=== PATIENT | female | born 1975 | race Caucasian/White ===

== ENCOUNTER 2018-12-10 20:50 | Emergency (ER) | payer SELFPAY ==
[~2018-12-10] VITALS: Ht 165.1 cm; Wt 66.0 kg
[~2018-12-10 20:50] MED LIST: MOTRIN
[2018-12-10] MEDS ORDERED: HYDROCODONE/ACETAMINOPHEN 5/325MG TABLET PO ONE (21:15)
[2018-12-11 03:10] VITALS: BP 122/70
== END 2018-12-11 03:15 | disposition home or self-care (01) ==
LOC: ER 20:50
DX: S70.01XA Contusion of right hip, initial encounter (principal); E11.9 Type 2 diabetes mellitus without complications; F15.10 Other stimulant abuse, uncomplicated; Z85.9 Personal history of malignant neoplasm, unspecified; W01.0XXA Fall on same level from slipping, tripping and stumbling without subsequent striking against object, initial encounter; Y93.89 Activity, other specified; Y92.89 Other specified places as the place of occurrence of the external cause; Y99.8 Other external cause status
CPT/HCPCS: 72192; 73502; 99284

== ENCOUNTER 2018-12-13 20:24 | Emergency (ER) | payer SELFPAY ==
[~2018-12-13] VITALS: Ht 162.6 cm; Wt 70.0 kg
[2018-12-13] MEDS ORDERED: MORPHINE SULFATE 4 MG/ML CPJ (NOT FOR IM USE) IV STA (23:00)
[2018-12-13] MEDS ORDERED: SODIUM CHLORIDE 0.9% 1,000 ML IV ONE (23:00)
[2018-12-13] MEDS ORDERED: ONDANSETRON HCL 4MG/2ML INJ IV STA (23:00)
[2018-12-13] MEDS ORDERED: FAMOTIDINE 20MG/2ML VIAL IV STA (23:00)
[2018-12-13 23:15] LABS: BASOPHILS % 1.3 % (0.0-2.0); HEMATOCRIT. 28.6 % (36.0-48.0); HEMOGLOBIN. 8.7 g/dL (12.0-16.0); LYMPHOCYTES % 13.7 % (20.0-50.0); MEAN CORPUSCULAR HEMOGLOBIN 20.3 pg (28.0-32.0); MEAN CORPUSCULAR VOLUME 66.9 fL (81.0-99.0); MONOCYTES % 5.4 % (2.0-8.0); NEUTROPHILS % 78.6 % (40.0-76.0); PLATELET 536 x1000/uL (130-400); RED BLOOD CELL COUNT 4.28 mill/uL (4.2-5.4); RED CELL DISTRIBUTION WIDTH 19.1 % (11.6-14.6)
[2018-12-13 23:22] LABS: CHLORIDE 111 mEq/L (98-107)
[2018-12-13 23:26] LABS: PLATELET ESTIMATE INCREASED
[2018-12-14 00:56] LABS: CLARITY URINE CLOUDY (CLEAR); COLOR URINE YELLOW (YELLOW); KETONES URINE NEGATIVE (NEGATIVE); LEUKOCYTE ESTERASE URINE 1+ (NEGATIVE); NITRITE URINE POSITIVE (NEGATIVE); OCCULT BLOOD URINE TRACE (NEGATIVE); PH URINE 5.5 (4.5-8.0); PROTEIN URINE NEGATIVE (NEGATIVE); SPECIFIC GRAVITY URINE 1.021 (1.005-1.030); UROBILINOGEN URINE 0.2 E.U./dL (0.2-1.0)
[2018-12-14] MEDS ORDERED: IOHEXOL-300 100 ML BOTTLE ONE (03:00)
[2018-12-14 06:20] VITALS: BP 144/75
== END 2018-12-14 06:22 | disposition home or self-care (01) ==
LOC: ER 20:24
DX: D64.9 Anemia, unspecified (principal); N39.0 Urinary tract infection, site not specified; F17.200 Nicotine dependence, unspecified, uncomplicated; E11.9 Type 2 diabetes mellitus without complications; Z71.6 Tobacco abuse counseling; Z85.9 Personal history of malignant neoplasm, unspecified
CPT/HCPCS: 36415; 71045; 74177; 80053; 81003; 83605; 83690; 84484; 85025; 93005; 96374; 96375; 99284; 99406; J2270; J2405; J3490; J7030; Q9967

== ENCOUNTER 2019-02-19 06:36 | Emergency (ER) | payer SELFPAY ==
[~2019-02-19] VITALS: Ht 152.4 cm; Wt 61.0 kg
[2019-02-19] MEDS ORDERED: MORPHINE SULFATE 4 MG/ML CPJ (NOT FOR IM USE) IV STA (08:09)
[2019-02-19] MEDS ORDERED: SODIUM CHLORIDE 0.9% 1,000 ML IV ONE (08:09)
[2019-02-19] MEDS ORDERED: ONDANSETRON HCL 4MG/2ML INJ IV STA (08:09)
[2019-02-19] MEDS ORDERED: FAMOTIDINE 20MG/2ML VIAL IV ONE (08:15)
[2019-02-19 08:50] LABS: BASOPHILS % 1.9 % (0.0-2.0); EOSINOPHILS % 2.7 % (0.0-5.0); HEMATOCRIT. 31.8 % (36.0-48.0); HEMOGLOBIN. 9.9 g/dL (12.0-16.0); LYMPHOCYTES % 22.4 % (20.0-50.0); MEAN CORPUSCULAR HEMOGLOBIN 20.9 pg (28.0-32.0); MEAN PLATELET VOLUME 7.1 fl (7.4-10.4); MONOCYTES % 6.4 % (2.0-8.0); NEUTROPHILS % 66.6 % (40.0-76.0); PLATELET 581 x1000/uL (130-400); RED BLOOD CELL COUNT 4.74 mill/uL (4.2-5.4); RED CELL DISTRIBUTION WIDTH 19.3 % (11.6-14.6)
[2019-02-19 08:57] LABS: CHLORIDE 107 mEq/L (98-107)
[2019-02-19 09:01] LABS: ETHANOL BLOOD < 10 mg/dL
[2019-02-19 09:02] LABS: CLARITY URINE CLOUDY (CLEAR); COLOR URINE YELLOW (YELLOW); KETONES URINE NEGATIVE (NEGATIVE); LEUKOCYTE ESTERASE URINE 1+ (NEGATIVE); NITRITE URINE POSITIVE (NEGATIVE); OCCULT BLOOD URINE 1+ (NEGATIVE); PH URINE 5.5 (4.5-8.0); PROTEIN URINE NEGATIVE (NEGATIVE); SPECIFIC GRAVITY URINE 1.032 (1.005-1.030); UROBILINOGEN URINE 0.2 E.U./dL (0.2-1.0)
[2019-02-19 09:03] LABS: PARTIAL THROMBOPLASTIN TIME 30.5 sec (23.4-31.0)
[2019-02-19 09:24] LABS: *BARBITURATES SCREEN URINE NEGATIVE (NEGATIVE); *BENZODIAZEPINES SCREEN URINE NEGATIVE (NEGATIVE); *COCAINE SCREEN URINE NEGATIVE (NEGATIVE); METHADONE URINE SCREEN NEGATIVE (NEGATIVE); OPIATES URINE SCREEN NEGATIVE (NEGATIVE)
[2019-02-19 09:25] LABS: CANNABINOID URINE SCREEN NEGATIVE (NEGATIVE); PHENCYCLIDINE URINE SCREEN NEGATIVE (NEGATIVE)
[2019-02-19 09:26] LABS: *AMPHETAMINES SCREEN URINE PRESUMTIVE POSITIVE (NEGATIVE)
[2019-02-19 09:33] LABS: PLATELET ESTIMATE INCREASED
[2019-02-19 15:32] VITALS: BP 128/78
== END 2019-02-19 15:45 | disposition home or self-care (01) ==
LOC: ER 06:36 → CANBEDREQ 16:34
DX: N30.90 Cystitis, unspecified without hematuria (principal); F15.10 Other stimulant abuse, uncomplicated; F17.210 Nicotine dependence, cigarettes, uncomplicated; Z98.51 Tubal ligation status
CPT/HCPCS: 36415; 71045; 74176; 80053; 80305; 80320; 81003; 83605; 83690; 83880; 84484; 85025; 85610; 85730; 87040; 87086; 93005; 96374; 96375; 99284; 99406; J2270; J2405; J3490; J7030; G0480

== ENCOUNTER 2020-01-14 11:30 | Inpatient (IN) | payer MEDICAID, OTHER ==
[~2020-01-14] VITALS: Ht 154.9 cm; Wt 61.2 kg
[2020-01-14] MEDS ORDERED: FAMOTIDINE 20MG/2ML VIAL IV STA (12:08)
[2020-01-14] MEDS ORDERED: MORPHINE SULFATE 4 MG/ML CPJ (NOT FOR IM USE) IV STA (12:08)
[2020-01-14] MEDS ORDERED: MAGNESIUM/ALUMINUM HYDROXIDE/SIMETHICONE 30ML UDC PO STA (12:08)
[2020-01-14 12:23] LABS: BASOPHILS % 1.3 % (0.0-2.0); EOSINOPHILS % 4.2 % (0.0-5.0); HEMATOCRIT. 31.6 % (36.0-48.0); HEMOGLOBIN. 9.8 g/dL (12.0-16.0); LYMPHOCYTES % 19.8 % (20.0-50.0); MEAN CORPUSCULAR HEMOGLOBIN 20.9 pg (28.0-32.0); MEAN CORPUSCULAR VOLUME 67.5 fL (81.0-99.0); MONOCYTES % 7.4 % (2.0-8.0); NEUTROPHILS % 67.3 % (40.0-76.0); PLATELET 611 x1000/uL (130-400); RED BLOOD CELL COUNT 4.69 mill/uL (4.2-5.4); RED CELL DISTRIBUTION WIDTH 19.3 % (11.6-14.6)
[2020-01-14 12:25] LABS: CHLORIDE 107 mEq/L (98-107)
[2020-01-14 12:28] LABS: PROTHROMBIN TIME 10.1 sec (9.6-11.0)
[2020-01-14 12:51] LABS: PLATELET ESTIMATE INCREASED
[2020-01-14 13:05] LABS: CLARITY URINE CLOUDY (CLEAR); COLOR URINE YELLOW (YELLOW); KETONES URINE NEGATIVE (NEGATIVE); LEUKOCYTE ESTERASE URINE 1+ (NEGATIVE); NITRITE URINE POSITIVE (NEGATIVE); OCCULT BLOOD URINE 1+ (NEGATIVE); PROTEIN URINE TRACE (NEGATIVE); SPECIFIC GRAVITY URINE 1.028 (1.005-1.030); UROBILINOGEN URINE 0.2 E.U./dL (0.2-1.0)
[2020-01-14] MEDS ORDERED: CEFTRIAXONE 1 G PREMIX 50 ML IV NR (16:30)
[2020-01-14] MEDS ORDERED: SODIUM CHLORIDE 0.9% 1,000 ML IV NR (16:31)
[2020-01-14 20:00] VITALS: BP 115/73
[2020-01-14] MEDS ORDERED: MORPHINE SULFATE 2 MG/ML CPJ (NOT FOR IM USE) IV PRN (20:45)
[2020-01-14 21:00] VITALS: BP 115/73
[2020-01-14] MEDS ORDERED: ONDANSETRON HCL 4MG/2ML INJ IV PRN (21:15)
[2020-01-15] VITALS: BP 123/82
[2020-01-15] MEDS: SODIUM CHLORIDE 0.9% 1,000 ML IV SCH ×3 (01:10→17:49)
[2020-01-15 04:00] VITALS: BP 120/75
[2020-01-15 07:21] LABS: CHLORIDE 109 mEq/L (98-107)
[2020-01-15 07:30] LABS: PHOSPHORUS 3.8 mg/dL (2.5-4.9)
[2020-01-15 07:33] LABS: BASOPHILS % 1.9 % (0.0-2.0); EOSINOPHILS % 5.6 % (0.0-5.0); HEMATOCRIT. 27.2 % (36.0-48.0); HEMOGLOBIN. 8.4 g/dL (12.0-16.0); LYMPHOCYTES % 23.3 % (20.0-50.0); MEAN CORPUSCULAR VOLUME 68.2 fL (81.0-99.0); MEAN PLATELET VOLUME 7.2 fl (7.4-10.4); NEUTROPHILS % 61.2 % (40.0-76.0); PLATELET 498 x1000/uL (130-400); RED BLOOD CELL COUNT 3.99 mill/uL (4.2-5.4)
[2020-01-15 08:00] VITALS: BP 134/69
[2020-01-15] MEDS ORDERED: PANTOPRAZOLE SODIUM 40 MG/VIAL IV SCH (09:00)
[2020-01-15] MEDS ORDERED: ENOXAPARIN 40MG/0.4ML SYR SUBCUT SCH (09:00)
[2020-01-15 12:00] VITALS: BP 124/60
[2020-01-15 14:24] LABS: TOTAL IRON BINDING CAPACITY 361 ug/dL (250-450)
[2020-01-15] MEDS ORDERED: LEVO500T2 MT (15:03)
[2020-01-15] MEDS ORDERED: DOCU250C14 MT (15:03)
[2020-01-15] MEDS ORDERED: NICO-645 TP (15:03)
[2020-01-15] MEDS ORDERED: FERR325T6 MT (15:03)
[2020-01-15 16:00] VITALS: BP 116/68
[2020-01-15] MEDS ORDERED: CEFTRIAXONE 1,000 MG in DEXTROSE 5% WATER 50 ML IV SCH (17:00)
[2020-01-15 17:02] VITALS: BP 116/68
== END 2020-01-15 18:28 | disposition home or self-care (01) | DRG 463 ==
LOC: ER 12:18 → 6EST 16:55 → ENRESERV 19:25
PROVIDERS: ADMIT Internal Medicine; ATTEND Internal Medicine
DX: N39.0 Urinary tract infection, site not specified (principal); K85.90 Acute pancreatitis without necrosis or infection, unspecified; R31.9 Hematuria, unspecified; F17.210 Nicotine dependence, cigarettes, uncomplicated; D64.9 Anemia, unspecified; Z98.51 Tubal ligation status; Z71.6 Tobacco abuse counseling
CPT/HCPCS: 36415; 76705; 80048; 80053; 81003; 82728; 83540; 83550; 83735; 84100; 84478; 84484; 85025; 87077; 87186; 93005; 96374; 97162; 97166; 99285; C9113; J0696; J1650; J2270; J3490; J7030; J7060

== ENCOUNTER 2020-06-02 03:52 | Emergency (ER) | payer MEDICAID ==
[~2020-06-02] VITALS: Ht 152.4 cm; Wt 70.0 kg
[~2020-06-02 03:52] MED LIST changes: +DOCU250C14 MT; +FERR325T6 MT; +LEVO500T2 MT; -MOTRIN; +NICO-645 TP
[2020-06-02] MEDS ORDERED: LIDOCAINE HCL/PF 1% 10 MG/ML 5ML VIAL IJ ONE (06:15)
[2020-06-02] MEDS ORDERED: IBUPROFEN 600MG TABLET PO ONE (06:15)
[2020-06-02] MEDS ORDERED: CEPH250C2 MT (07:24)
[2020-06-02] MEDS ORDERED: IBUP-2028 MT (07:24)
[2020-06-02 07:40] VITALS: BP 130/86
== END 2020-06-02 07:44 | disposition home or self-care (01) ==
LOC: ER 03:52
DX: L02.01 Cutaneous abscess of face (principal); L03.211 Cellulitis of face; J45.909 Unspecified asthma, uncomplicated; E11.9 Type 2 diabetes mellitus without complications; Z79.899 Other long term (current) drug therapy
CPT/HCPCS: 10060; 99283

== ENCOUNTER 2020-09-04 23:49 | Emergency (ER) | payer MEDICAID, OTHER ==
[~2020-09-04] VITALS: Ht 152.4 cm; Wt 62.0 kg
[~2020-09-04 23:49] MED LIST changes: +CEPH250C2 MT; +IBUP-2028 MT
[2020-09-05] MEDS ORDERED: MAGNESIUM/ALUMINUM HYDROXIDE/SIMETHICONE 30ML UDC PO ONE (00:30)
[2020-09-05] MEDS ORDERED: FAMOTIDINE 20MG/2ML VIAL IV ONE (00:30)
[2020-09-05] MEDS ORDERED: VISCOUS LIDOCAINE 2% 15 ML UDC MM PRN (00:30)
[2020-09-05 01:30] LABS: CHLORIDE 109 mEq/L (98-107)
[2020-09-05 01:47] LABS: BASOPHILS % 1.2 % (0.0-2.0); EOSINOPHILS % 2.4 % (0.0-5.0); HEMATOCRIT. 30.4 % (36.0-48.0); HEMOGLOBIN. 9.3 g/dL (12.0-16.0); LYMPHOCYTES % 21.9 % (20.0-50.0); MEAN CORPUSCULAR HEMOGLOBIN 20.1 pg (28.0-32.0); MEAN CORPUSCULAR VOLUME 65.5 fL (81.0-99.0); MEAN PLATELET VOLUME 7.2 fl (7.4-10.4); NEUTROPHILS % 67.5 % (40.0-76.0); PLATELET 491 x1000/uL (130-400); RED BLOOD CELL COUNT 4.64 mill/uL (4.2-5.4); RED CELL DISTRIBUTION WIDTH 20.3 % (11.6-14.6)
[2020-09-05 01:49] LABS: PLATELET ESTIMATE NORMAL
[2020-09-05] MEDS ORDERED: SODIUM CHLORIDE 0.9% 1,000 ML IV ONE (03:15)
[2020-09-05 05:50] VITALS: BP 142/74
== END 2020-09-05 05:51 | disposition home or self-care (01) ==
LOC: ER 23:49
DX: R10.9 Unspecified abdominal pain (principal); D25.9 Leiomyoma of uterus, unspecified; F10.10 Alcohol abuse, uncomplicated; Y90.0 Blood alcohol level of less than 20 mg/100 ml; Z87.19 Personal history of other diseases of the digestive system
CPT/HCPCS: 36415; 74176; 80053; 80320; 83690; 85025; 93005; 96361; 96374; 99285; J3490; J7030; Z7610; G0480

== ENCOUNTER 2020-11-30 21:59 | Emergency (ER) | payer OTHER ==
[~2020-11-30] VITALS: Ht 152.4 cm; Wt 62.0 kg
[2020-12-01] MEDS ORDERED: SODIUM CHLORIDE 0.9% 1,000 ML IV ONE (00:30)
[2020-12-01 01:10] LABS: BASOPHILS % 1.8 % (0.0-2.0); EOSINOPHILS % 3.2 % (0.0-5.0); HEMATOCRIT. 23.2 % (36.0-48.0); HEMOGLOBIN. 7.4 g/dL (12.0-16.0); LYMPHOCYTES % 25.5 % (20.0-50.0); MEAN CORPUSCULAR HEMOGLOBIN 21.3 pg (28.0-32.0); MEAN CORPUSCULAR VOLUME 66.2 fL (81.0-99.0); MEAN PLATELET VOLUME 7.4 fl (7.4-10.4); MONOCYTES % 9.3 % (2.0-8.0); NEUTROPHILS % 60.2 % (40.0-76.0); PLATELET 484 x1000/uL (130-400); RED CELL DISTRIBUTION WIDTH 18.6 % (11.6-14.6)
[2020-12-01 01:16] LABS: CHLORIDE 112 mEq/L (98-107)
[2020-12-01 01:19] LABS: HCG SCREEN NEGATIVE
[2020-12-01 04:36] LABS: PLATELET ESTIMATE INCREASED
[2020-12-01 09:50] VITALS: BP 141/81
== END 2020-12-01 09:52 | disposition home or self-care (01) ==
LOC: ER 21:59
DX: N93.8 Other specified abnormal uterine and vaginal bleeding (principal); R42 Dizziness and giddiness; F17.290 Nicotine dependence, other tobacco product, uncomplicated; F15.10 Other stimulant abuse, uncomplicated; Z98.51 Tubal ligation status; Z79.899 Other long term (current) drug therapy
CPT/HCPCS: 36415; 76830; 76856; 80048; 84703; 85025; 86850; 86900; 86901; 86920; 96360; 99285; J7030; Z7610; P9016

== ENCOUNTER 2020-12-09 01:37 | Emergency (ER) | payer MEDICAID, OTHER ==
[~2020-12-09] VITALS: Ht 152.4 cm; Wt 62.0 kg
[2020-12-09] MEDS ORDERED: ONDANSETRON HCL 4MG/2ML INJ IV STA (02:12)
[2020-12-09] MEDS ORDERED: FAMOTIDINE 20MG/2ML VIAL IV STA (02:12)
[2020-12-09] MEDS ORDERED: MORPHINE SULFATE 4 MG/ML CPJ (NOT FOR IM USE) IV ONE (02:30)
[2020-12-09 02:46] LABS: BASOPHILS % 1.6 % (0.0-2.0); EOSINOPHILS % 2.7 % (0.0-5.0); HEMATOCRIT. 29.5 % (36.0-48.0); HEMOGLOBIN. 9.3 g/dL (12.0-16.0); LYMPHOCYTES % 19.5 % (20.0-50.0); MEAN CORPUSCULAR HEMOGLOBIN 22.1 pg (28.0-32.0); MEAN CORPUSCULAR VOLUME 70.3 fL (81.0-99.0); MEAN PLATELET VOLUME 7.3 fl (7.4-10.4); MONOCYTES % 8.3 % (2.0-8.0); NEUTROPHILS % 67.9 % (40.0-76.0); PLATELET 554 x1000/uL (130-400); RED CELL DISTRIBUTION WIDTH 21.6 % (11.6-14.6)
[2020-12-09 02:48] LABS: CHLORIDE 106 mEq/L (98-107)
[2020-12-09 02:52] LABS: PROTHROMBIN TIME 10.3 sec (9.6-11.0)
[2020-12-09 03:01] LABS: CLARITY URINE CLOUDY (CLEAR); COLOR URINE YELLOW (YELLOW); KETONES URINE TRACE (NEGATIVE); LEUKOCYTE ESTERASE URINE TRACE (NEGATIVE); NITRITE URINE POSITIVE (NEGATIVE); OCCULT BLOOD URINE 1+ (NEGATIVE); PH URINE 5.5 (4.5-8.0); PROTEIN URINE NEGATIVE (NEGATIVE); SPECIFIC GRAVITY URINE 1.033 (1.005-1.030); UROBILINOGEN URINE 0.2 E.U./dL (0.2-1.0)
[2020-12-09] MEDS ORDERED: FAMO-135 MT (04:30)
[2020-12-09] MEDS ORDERED: CEPH500C2 MT (04:30)
[2020-12-09 04:42] VITALS: BP 115/64
== END 2020-12-09 04:50 | disposition home or self-care (01) ==
LOC: ER 02:54
DX: N39.0 Urinary tract infection, site not specified (principal); F15.10 Other stimulant abuse, uncomplicated; F10.10 Alcohol abuse, uncomplicated; Z87.19 Personal history of other diseases of the digestive system; Y90.9 Presence of alcohol in blood, level not specified
CPT/HCPCS: 36415; 80053; 81003; 81025; 83690; 85025; 85610; 96374; 96375; 99284; J2270; J2405; J3490

== ENCOUNTER 2021-02-07 03:42 | Emergency (ER) | payer MEDICAID ==
[~2021-02-07] VITALS: Ht 152.4 cm; Wt 61.0 kg
[~2021-02-07 03:42] MED LIST changes: +CEPH500C2 MT; +FAMO-135 MT
[2021-02-07 03:52] VITALS: BP 127/76
[2021-02-07] MEDS ORDERED: IBUP-2029 MT (04:51)
[2021-02-07] MEDS ORDERED: LIDO700A30 TP (04:51)
[2021-02-07] MEDS ORDERED: LIDOCAINE 5% PATCH TOP SCH (05:00)
[2021-02-07] MEDS ORDERED: IBUPROFEN 600MG TABLET PO ONE (05:00)
== END 2021-02-07 05:36 | disposition home or self-care (01) ==
LOC: ER 03:42
DX: M54.2 Cervicalgia (principal); F15.10 Other stimulant abuse, uncomplicated; Z98.51 Tubal ligation status; Z79.899 Other long term (current) drug therapy; W01.0XXA Fall on same level from slipping, tripping and stumbling without subsequent striking against object, initial encounter; Y93.89 Activity, other specified; Y92.89 Other specified places as the place of occurrence of the external cause; Y99.8 Other external cause status
CPT/HCPCS: 81025; 99282

== ENCOUNTER 2021-11-06 16:27 | Emergency (ER) | payer MEDICAID, OTHER ==
[~2021-11-06] VITALS: Ht 167.6 cm; Wt 85.0 kg
[~2021-11-06 16:27] MED LIST changes: +IBUP-2029 MT; +LIDO700A30 TP
[2021-11-06 16:49] VITALS: BP 144/67
== END 2021-11-06 18:58 | disposition left against medical advice (07) ==
LOC: ER 16:27
DX: Z53.21 Procedure and treatment not carried out due to patient leaving prior to being seen by health care provider (principal); D64.9 Anemia, unspecified; Z98.51 Tubal ligation status
CPT/HCPCS: 86850

== ENCOUNTER 2022-02-04 06:32 | Emergency (ER) | payer MEDICAID, OTHER ==
[~2022-02-04] VITALS: Ht 152.4 cm; Wt 78.2 kg
[2022-02-04] MEDS ORDERED: IBUPROFEN 800MG TABLET PO ONE (07:45)
[2022-02-04 07:52] VITALS: BP 124/78
[2022-02-04 08:13] LABS: BASOPHILS % 2.6 % (0.0-2.0); HEMATOCRIT. 28.5 % (36.0-48.0); HEMOGLOBIN. 8.8 g/dL (12.0-16.0); LYMPHOCYTES % 24.4 % (20.0-50.0); MEAN CORPUSCULAR HEMOGLOBIN 19.7 pg (28.0-32.0); MEAN CORPUSCULAR VOLUME 64.2 fL (81.0-99.0); MEAN PLATELET VOLUME 7.3 fl (7.4-10.4); PLATELET 668 x1000/uL (130-400); RED BLOOD CELL COUNT 4.44 mill/uL (4.2-5.4); RED CELL DISTRIBUTION WIDTH 21.7 % (11.6-14.6)
[2022-02-04 08:21] LABS: CHLORIDE 108 mEq/L (98-107)
[2022-02-04 08:24] LABS: CLARITY URINE CLOUDY (CLEAR); COLOR URINE RED (YELLOW); KETONES URINE NEGATIVE (NEGATIVE); LEUKOCYTE ESTERASE URINE 1+ (NEGATIVE); NITRITE URINE NEGATIVE (NEGATIVE); OCCULT BLOOD URINE 3+ (NEGATIVE); PH URINE 5.5 (4.5-8.0); PROTEIN URINE 2+ (NEGATIVE); SPECIFIC GRAVITY URINE 1.024 (1.005-1.030)
[2022-02-04 08:27] LABS: INR 0.9
[2022-02-04] MEDS ORDERED: IBUP-2030 PO (09:57)
[2022-02-04] MEDS ORDERED: NITR100C PO (09:57)
[2022-02-04 10:30] LABS: PLATELET ESTIMATE INCREASED
== END 2022-02-04 11:11 | disposition home or self-care (01) ==
LOC: ER 06:32
DX: R10.9 Unspecified abdominal pain (principal); N39.0 Urinary tract infection, site not specified; D25.9 Leiomyoma of uterus, unspecified; J45.909 Unspecified asthma, uncomplicated; Z98.51 Tubal ligation status
CPT/HCPCS: 36415; 76830; 76856; 80053; 81003; 81025; 85025; 86850; 86900; 99284

== ENCOUNTER 2023-05-31 19:33 | Emergency (ER) | payer MEDICAID, OTHER ==
[~2023-05-31] VITALS: Ht 152.4 cm; Wt 68.3 kg
[~2023-05-31 19:33] MED LIST changes: +IBUP-2030 PO; +NITR100C PO
[2023-05-31 20:00] VITALS: BP 141/73; PULSE 78; RESP 18; TEMP 98; O2SAT 99
[2023-05-31 20:57] LABS: BASOPHILS % 1.7 % (0.0-2.0); EOSINOPHILS % 4.7 % (0.0-5.0); HEMATOCRIT. 31.7 % (36.0-48.0); MEAN CORPUSCULAR HEMOGLOBIN 21.4 pg (28.0-32.0); MEAN CORPUSCULAR HGB CONC 31.7 g/dL (31.0-37.0); MEAN CORPUSCULAR VOLUME 67.6 fL (81.0-99.0); MEAN PLATELET VOLUME 7.8 fl (7.4-10.4); MONOCYTES % 6.3 % (2.0-8.0); NEUTROPHILS % 65.3 % (40.0-76.0); PLATELET 479 x1000/uL (130-400); RED BLOOD CELL COUNT 4.68 mill/uL (4.2-5.4); RED CELL DISTRIBUTION WIDTH 24.3 % (11.6-14.6); WHITE BLOOD COUNT 6.7 x1000/uL (4.5-11.0)
[2023-05-31 21:01] LABS: ADD RBC MORPHOLOGY YES; DIFFERENTIAL COMMENT 1
[2023-05-31 21:13] LABS: ALANINE AMINOTRANSFERASE 13 IU/L (10-49); ALBUMIN 4.4 g/dL (3.2-4.8); ASPARTATE AMINOTRANSFERASE 16 IU/L (<34); BILIRUBIN TOTAL 0.4 mg/dL (0.1-1.0); CALCIUM 9.2 mg/dL (8.7-10.4); CARBON DIOXIDE 26 mEq/L (21-32); CHLORIDE 107 mEq/L (98-107); CREATININE 0.8 mg/dL (0.6-1.0); GLUCOSE 126 mg/dL (70-105); POTASSIUM 3.5 mEq/L (3.5-5.1); PROTEIN TOTAL 7.5 g/dL (6.0-8.3); SODIUM 142 mEq/L (136-145); UREA NITROGEN BLOOD 14 mg/dL (9-23)
[2023-05-31 21:16] LABS: HCG SCREEN NEGATIVE
[2023-05-31 21:43] LABS: ANISOCYTOSIS 2+; HYPOCHROMASIA 2+; MICROCYTOSIS 3+; PLATELET ESTIMATE INCREASED
== END 2023-06-01 08:18 | disposition left against medical advice (07) ==
LOC: ER 19:33
DX: R10.9 Unspecified abdominal pain (principal); Z53.21 Procedure and treatment not carried out due to patient leaving prior to being seen by health care provider
CPT/HCPCS: 80053; 84703; 83690; 85025; 36415; 99281; Z7610

== ENCOUNTER 2024-06-28 17:47 | Emergency (ER) | payer MEDICAID, OTHER ==
[~2024-06-28] VITALS: Ht 165.1 cm; Wt 77.0 kg
[2024-06-28 17:49] VITALS: TEMP 36.7; O2SAT 99
[2024-06-28] MEDS: KETOROLAC 30MG/ML VIAL IV STA (18:13)
[2024-06-28 19:18] LABS: HEMOGLOBIN. 12.6 g/dL (12.0-16.0); RED BLOOD CELL COUNT 4.34 mill/uL (4.2-5.4); RED CELL DISTRIBUTION WIDTH 14.2 % (11.6-14.6); WHITE BLOOD COUNT 7.2 x1000/uL (4.5-11.0)
[2024-06-28 19:20] LABS: BASOPHILS % 1.5 % (0.0-2.0); EOSINOPHILS % 4.9 % (0.0-5.0); HEMATOCRIT. 37.8 % (36.0-48.0); LYMPHOCYTES % 28.6 % (20.0-50.0); MEAN CORPUSCULAR HEMOGLOBIN 29.1 pg (28.0-32.0); MEAN CORPUSCULAR HGB CONC 33.4 g/dL (31.0-37.0); MEAN CORPUSCULAR VOLUME 87.1 fL (81.0-99.0); MONOCYTES % 8.5 % (2.0-8.0); NEUTROPHILS % 56.5 % (40.0-76.0); PLATELET 287 x1000/uL (130-400)
[2024-06-28 19:25] LABS: CHLORIDE 105 mEq/L (98-107); POTASSIUM 3.9 mEq/L (3.5-5.1); SODIUM 141 mEq/L (136-145)
[2024-06-28 19:26] LABS: CALCIUM 9.2 mg/dL (8.7-10.4); CARBON DIOXIDE 29 mEq/L (21-32)
[2024-06-28 19:31] LABS: CREATININE 0.7 mg/dL (0.6-1.0); GLUCOSE 114 mg/dL (70-105); UREA NITROGEN BLOOD 10 mg/dL (9-23)
[2024-06-28 19:33] LABS: TROPONIN I HIGH SENSITIVITY < 4 ng/L (3.0-34)
[2024-06-28 19:35] LABS: D-DIMER 0.26 mg/L FEU (<0.50); INR 0.9
[2024-06-28] MEDS ORDERED: AZIT500T8 MT (19:39)
[2024-06-28] MEDS ORDERED: AMOX1TAB16 MT (19:39)
[2024-06-28 19:50] VITALS: BP 128/72; PULSE 83; RESP 20; O2SAT 100
== END 2024-06-28 20:25 | disposition home or self-care (01) ==
LOC: ER 17:47
DX: J18.9 Pneumonia, unspecified organism (principal); R07.89 Other chest pain; E11.9 Type 2 diabetes mellitus without complications; I10 Essential (primary) hypertension; J45.909 Unspecified asthma, uncomplicated; Z79.1 Long term (current) use of non-steroidal anti-inflammatories (NSAID); Z98.51 Tubal ligation status; F15.90 Other stimulant use, unspecified, uncomplicated; Z79.899 Other long term (current) drug therapy
CPT/HCPCS: 80048; 83880; 85025; 85379; 85610; 86850; 86900; 86901; 84484; 36415; 71045; 93005; 96374; 99285; J1885; Z7610; 99406

== ENCOUNTER 2024-08-11 02:12 | Emergency (ER) | payer MEDICAID, OTHER ==
[~2024-08-11] VITALS: Ht 152.4 cm; Wt 70.0 kg
[~2024-08-11 02:12] MED LIST changes: +AMOX1TAB16 MT; +AZIT500T8 MT
[2024-08-11 02:15] VITALS: O2SAT 100
[2024-08-11 02:46] VITALS: TEMP 36.9; O2SAT 100
[2024-08-11 04:50] VITALS: BP 142/84; PULSE 88; RESP 18
[2024-08-11] MEDS: KETOROLAC 15MG/ML VIAL IM ONE (04:50)
[2024-08-11] MEDS ORDERED: LIDO700A15 TP (05:25)
[2024-08-11] MEDS ORDERED: NAPR-1176 MT (05:25)
== END 2024-08-11 05:35 | disposition home or self-care (01) ==
LOC: ER 02:30
DX: M25.561 Pain in right knee (principal); E11.9 Type 2 diabetes mellitus without complications; I10 Essential (primary) hypertension; J45.909 Unspecified asthma, uncomplicated; Z79.899 Other long term (current) drug therapy
CPT/HCPCS: 99284; 73562; 73590; 96372; J1885

== ENCOUNTER 2024-09-22 04:32 | Emergency (ER) | payer MEDICAID ==
[~2024-09-22] VITALS: Ht 152.4 cm; Wt 65.8 kg
[~2024-09-22 04:32] MED LIST changes: +LIDO-53 TP; +NAPR-1176 MT
[2024-09-22 04:35] VITALS: O2SAT 99
[2024-09-22 05:48] LABS: BASOPHILS % 1.5 % (0.0-2.0); EOSINOPHILS % 4.3 % (0.0-5.0); HEMATOCRIT. 40.6 % (36.0-48.0); HEMOGLOBIN. 13.8 g/dL (12.0-16.0); LYMPHOCYTES % 25.1 % (20.0-50.0); MEAN CORPUSCULAR HEMOGLOBIN 29.9 pg (28.0-32.0); MEAN CORPUSCULAR HGB CONC 33.9 g/dL (31.0-37.0); MEAN CORPUSCULAR VOLUME 88.1 fL (81.0-99.0); MEAN PLATELET VOLUME 8.9 fl (7.4-10.4); MONOCYTES % 8.6 % (2.0-8.0); NEUTROPHILS % 60.5 % (40.0-76.0); PLATELET 347 x1000/uL (130-400); RED BLOOD CELL COUNT 4.61 mill/uL (4.2-5.4); RED CELL DISTRIBUTION WIDTH 13.8 % (11.6-14.6); WHITE BLOOD COUNT 7.7 x1000/uL (4.5-11.0)
[2024-09-22 05:51] LABS: POTASSIUM 3.6 mEq/L (3.5-5.1)
[2024-09-22 05:52] LABS: CALCIUM 9.6 mg/dL (8.7-10.4)
[2024-09-22] MEDS: ACETAMINOPHEN 325MG TABLET PO ONE (06:00)
[2024-09-22] MEDS: IBUPROFEN 600MG TABLET PO ONE (06:00)
[2024-09-22] MEDS ORDERED: TOPUD MT (08:50)
[2024-09-22] MEDS ORDERED: IBUP-2029 MT (08:50)
[2024-09-22] MEDS ORDERED: TRIA15OI8 TP (08:53)
[2024-09-22 09:30] VITALS: BP 128/88; PULSE 71; RESP 16; TEMP 36.8; O2SAT 99
== END 2024-09-22 08:40 | disposition home or self-care (01) ==
LOC: ER 04:57
DX: M25.562 Pain in left knee (principal); M25.561 Pain in right knee; M79.661 Pain in right lower leg; J45.909 Unspecified asthma, uncomplicated; I10 Essential (primary) hypertension; E11.9 Type 2 diabetes mellitus without complications; Z79.899 Other long term (current) drug therapy
CPT/HCPCS: 80048; 83880; 85025; 36415; 71045; 73560; 93970; 99284; Z7610 ×2